=== PATIENT | female | born 1970 | race Caucasian/White ===

== ENCOUNTER → 2020-04-01 15:07 | Outpatient (CLI) | payer OTHER, SELFPAY ==
--- NOTE | ~2020-04-01 | MM_ITS ---
EXAMINATION: MM screening [facility] BI w apurva HISTORY: Screening mammogram TECHNIQUE: Craniocaudal and mediolateral oblique 3-D tomosynthesis images were obtained and synthetic 2-D images were generated. CAD analysis was submitted and interpreted. COMPARISON: 02/12/2019, 02/19/2018, 11/16/2016 bilateral digital screening mammogram examinations BREAST PARENCHYMAL COMPOSITION: The breasts are heterogeneously dense, which may obscure small masses . FINDINGS: There is no evidence of suspicious mass, calcification, or architectural distortion to sugg est malignancy in either breast. There has been no suspicious interval change. IMPRESSION: 1. No mammographic evidence of malignancy. 2. Recommend routine screening mammography in one year. BI-RADS Category 1: Negative Reviewed, dictated and finalized at location A.
== END ==
PROVIDERS: PCP Family Medicine; Visit Provider Obstetrics & Gynecology
DX: Z12.31 Encounter for screening mammogram for malignant neoplasm of breast (principal)
CPT/HCPCS: 77063; 77067

== ENCOUNTER → 2021-04-07 16:46 | Outpatient (CLI) | payer OTHER, SELFPAY ==
--- NOTE | ~2021-04-07 | MM_ITS ---
EXAMINATION: MM screening [facility] BI w apurva HISTORY: Screening TECHNIQUE: Craniocaudal and mediolateral oblique 3-D tomosynthesis images were obtained and synthetic 2-D images were generated. CAD analysis was submitted and interpreted. COMPARISON: Comparison to multiple prior studies sequentially, with oldest reviewed study dated 05/2015. BREAST PARENCHYMAL COMPOSITION: The breasts are heterogeneously dense, which may obscure small masses . FINDINGS: There is no evidence of suspicious mass, calcification, or architectural distortion to sugg est malignancy in either breast. There has been no suspicious interval change. IMPRESSION: 1. No mammographic evidence of malignancy. 2. Recommend routine screening mammography in one year. BI-RADS Category 1: Negative Reviewed, dictated and finalized at location A.
== END ==
PROVIDERS: Visit Provider Obstetrics & Gynecology
DX: Z12.31 Encounter for screening mammogram for malignant neoplasm of breast (principal)
CPT/HCPCS: 77063; 77067

== ENCOUNTER → 2021-08-15 08:55 | Outpatient (CLI) | payer OTHER, SELFPAY ==
--- NOTE | ~2021-08-15 | US_ITS ---
EXAMINATION: US abdomen complete EXAM DATE: 08/15/2021 09:19 INDICATION: K25.7 - Chronic gastric ulcer without hemorrhage or perfo... TECHNIQUE: Multiple grayscale and Doppler images of the complete abdomen were obtained (by a technolo gist who performed the scan) and subsequently reviewed. There is no prior study for comparison. FINDINGS: The abdominal aorta is normal in caliber. Visualized portion IVC is patent. The pancreatic head a nd body are normal in appearance. The pancreatic tail is not visualized. The liver has normal echogenicity and contour. There are no focal liver lesions identified. There is no evidence of intrahepatic biliary duct dilation. Portal venous flow was seen in the hepatopedal , normal direction and has normal Doppler waveform. Common bile duct measures 4 mm, which is normal. The gallbladder fossa is unremarkable. Right kidney: There is normal contour and echogenicity. It measures 9.7 x 4.5 x 5 centimeters. The re are no focal renal lesions identified. There is no hydronephrosis. Left kidney: There is normal contour and echogenicity. It measures 10.2 x 5.9 x 4.7 centimeters. T here are no focal renal lesions identified. There is no hydronephrosis. The spleen measures 10.2 centimeters and is morphologically normal. IMPRESSION: 1. Unremarkable complete abdominal ultrasound exam. Reviewed, dictated and finalized at location B. MEDICAL SURGICAL
== END ==
PROVIDERS: PCP Family Medicine; Visit Provider Nurse Practitioner Family
DX: K25.7 Chronic gastric ulcer without hemorrhage or perforation (principal); R10.31 Right lower quadrant pain
CPT/HCPCS: 76700

== ENCOUNTER 2021-09-09 10:09 | Outpatient (CLI) | payer OTHER, SELFPAY ==
--- NOTE | ~2021-09-09 | US_ITS ---
EXAMINATION: US soft tissue LE RT DATE: 09/09/2021 10:51 INDICATION: Right thigh lump. TECHNIQUE: Multiple grayscale and Doppler ultrasound images of the right thigh were obtained. COMPARISON: None FINDINGS: In the right thigh, there is a 1.5 x 0.7 x 1.2 cm ill-defined hyperechoic subcutaneous mass . In the right thigh, there is a 3.5 x 1.7 x 3.8 cm ill-defined isoechoic subcutaneous mass. Both mas ses demonstrate echotexture similar to normal subcutaneous fat. IMPRESSION: 1. Two right thigh subcutaneous masses measuring up to 3.8 cm, which may be inflammation or lipomas. Reviewed, dictated and finalized at location A. S PRESSER IMPRESSION: 1. Two right thigh subcutaneous masses measuring up to 3.8 cm, which may be inf lammation or lipomas.
--- NOTE | ~2021-09-09 | US_ITS ---
EXAMINATION: US soft tissue LE DATE: 09/09/2021 10:51 INDICATION: Left thigh lump. TECHNIQUE: Multiple grayscale and Doppler ultrasound images of the left thigh were obtained. COMPARISON: None FINDINGS: There is an ill-defined 1.8 x 1.7 x 0.9 cm hyperechoic subcutaneous mass in left thigh with echotexture similar to normal fat. IMPRESSION: 1. 1.8 cm subcutaneous mass in left thigh, which may be inflammation or a lipoma. Reviewed, dictated and finalized at location A. AND SEAT COVER FITTER IMPRESSION: 1. 1.8 cm subcutaneous mass in left thigh, which may be inflammation or a lipom a.
== END 2021-09-09 10:10 | disposition home or self-care (01) ==
LOC: ANHIMG 10:13
PROVIDERS: PCP Family Medicine; Visit Provider Nurse Practitioner Family
DX: R22.41 Localized swelling, mass and lump, right lower limb (principal); R22.42 Localized swelling, mass and lump, left lower limb
CPT/HCPCS: 76882

== ENCOUNTER 2022-05-02 07:29 | Outpatient (CLI) | payer OTHER, SELFPAY ==
--- NOTE | ~2022-05-02 | MM_ITS ---
EXAMINATION: MM screening [facility] BI w apurva HISTORY: Screening mammogram TECHNIQUE: Craniocaudal and mediolateral oblique 3-D tomosynthesis images were obtained and synthetic 2-D images were generated. CAD analysis was submitted and interpreted. COMPARISON: 821, 04/01/2020, 02/12/2019 BREAST PARENCHYMAL COMPOSITION: The breasts are heterogeneously dense, which may obscure small masses . FINDINGS: There is no suspicious mass, calcification, or architectural distortion to suggest malignan cy in either breast. There has been no suspicious interval change. IMPRESSION: 1. No mammographic evidence of malignancy. 2. Recommend routine screening mammography in one year. BI-RADS Category 1: Negative Reviewed, dictated and finalized at location A.
== END 2022-05-02 07:30 | disposition home or self-care (01) ==
PROVIDERS: PCP Family Medicine; Visit Provider Nurse Practitioner
DX: Z12.31 Encounter for screening mammogram for malignant neoplasm of breast (principal)
CPT/HCPCS: 77063; 77067

== ENCOUNTER → 2022-06-05 14:57 | Outpatient (CLI) | payer OTHER, SELFPAY ==
--- NOTE | ~2022-06-05 | DEXA_ITS ---
Bone Density Report Name: ALEXANDER WILSON Age: 52 Sex: Female Ethnicity: White Date of : 1970 Indication: osteopenia; height loss; hysterectomy; postmenopausal Referring Provider: THONG, GIDEON Study: Bone densitometry was performed. Exam Date: June 05, 2022 Accession number: [id number] Bone Density: Region BMD T-score Z-score Classification AP Spine (L1, L4) 0.898 -1.3 -0.3 Osteopenia Femoral Neck (Left) 0.771 -0.7 0.3 Normal Total Hip (Left) 0.904 -0.3 0.3 Normal Femoral Neck (Right) 0.805 -0.4 0.6 Normal Total Hip (Right) 0.872 -0.6 0.1 Normal Total Hip Mean 0.888 -0.5 0.2 Normal World Health Organization criteria for BMD impression classify patients as: Normal (T-score at or above -1.0), Osteopenia (T-score between -1.0 and -2.5), or Osteoporosis (T-score at or below -2.5). 10-year Fracture Risk(1): Major Osteoporotic Fracture 4.3% Hip Fracture 0.1% Reported Risk Factors: [place] (), Neck BMD=0.771, BMI=48.8 (1) FRAX(R) Version 3.08. Fracture probability calculated for an untreated patient. Fracture probability may be lower if the patient has received treatment. Previous Exams: Region Exam Age BMD T-score BMD Change BMD Change Date g/cm2 vs Baseline vs Previous AP Spine(L1, L4) 06/05/2022 52 0.898 -1.3 -0.011 -0.011 01/01/2019 48 0.909 -1.2 Total Hip(Left) 06/05/2022 52 0.904 -0.3 0.009 0.009 01/01/2019 48 0.895 -0.4 Total Hip(Right) 06/05/2022 52 0.872 -0.6 0.011 0.011 01/01/2019 48 0.861 -0.7 *Denotes significance at 95% confidence level, LSC for AP Spine = 0.022 g/cm2, LSC for Total Hip = 0.027 g/cm2 Clinical Information Provided by Patient: Has the following medical conditions: Hysterectomy Patient maximum height was 62 Menopause Age: 43 No regular weight bearing exercise Drinks caffeinated beverages Onset of menses at age 12 Number of children 3 Impression: The patient has low bone mass, based on the Total Spine T-score. The patient has an estimated ten-year risk of hip fracture of 0.1% and an estimated ten-year risk of major fracture of 4.3%, based on the WHO FRAX algorithm. No significant bone loss was observed. Discussion: BONE DENSITY IS LOW AT ONE OR MORE SKELETAL SITES. This patient's lowest T-score is low at one or more skeletal sites. It meets the World Health Organization's (WHO) criteria for ?low bone m
== END ==
PROVIDERS: PCP Nurse Practitioner; Visit Provider Nurse Practitioner
DX: M85.88 Other specified disorders of bone density and structure, other site (principal)
CPT/HCPCS: 77080

== ENCOUNTER 2022-09-08 09:10 | Outpatient (CLI) | payer OTHER, SELFPAY ==
--- NOTE | ~2022-09-08 | XR_ITS ---
Clinical Indication: Cough PA and lateral views of the chest: Comparison: 09/24/2017 Findings: The lungs are clear, without evidence of focal consolidation or pleural effusion. Cardiome diastinal silhouette is within normal limits. Large hiatal hernia again present. Mild S-shaped scolio sis is similar to prior exam. Impression: Large hiatal hernia, similar to prior exam. Clear lungs. Reviewed, dictated and finalized at location . WRAPPER Impression: Large hiatal hernia, similar to prior exam. Clear lungs.
--- NOTE | 2022-09-08 09:48 | ECG_ITS ---
Measurements Intervals [place] Rate: 73 P: 45 NC: 168 QRS: -20 QRSD: 80 T: 30 QT: 359 QTc: 398 Interpretive Statements SINUS RHYTHM RSR' IN V1 OR V2, PROBABLY NORMAL VARIANT LOW QRS VOLTAGE IN PRECORDIAL LEADS BORDERLINE ECG NO PREVIOUS ECG AVAILABLE FOR COMPARISON Electronically Signed On 09-08-2022 10:01:51 PBX TEACHER by Hay Cardoso D.O.
== END 2022-09-08 09:11 | disposition home or self-care (01) ==
PROVIDERS: PCP Family Medicine; Visit Provider Nurse Practitioner Family
DX: R07.9 Chest pain, unspecified (principal); R05.9 Cough, unspecified; K44.9 Diaphragmatic hernia without obstruction or gangrene; R94.31 Abnormal electrocardiogram [ECG] [EKG]
CPT/HCPCS: 71046; 93005

== ENCOUNTER 2022-09-15 14:34 | Outpatient (CLI) | payer OTHER, SELFPAY ==
--- NOTE | 2022-09-18 16:00 | WPDHOLTEREM ---
Holter/Event Monitor Holter/Event Monitor Date of procedure: 09/15/22 Holter/Event Procedure: 48 Hr Holter Monitor Indications: Chest pain Conclusion: 1. 48 hour holter monitor on 09/15/22. 2. Underlying rhythm is sinus rhythm. HR range 53-136 bpm; average HR 92 bpm. 3. There are 18 premature supraventricular complexes and 2 supraventricular couplets. No supraventricular tachycardia. 4. There is 1 premature ventricular complex. No ventricular tachycardia. 5. No sinoatrial or atrioventricular blocks. No significant pauses greater than 2 seconds. 6. No symptoms available for correlation.
== END 2022-09-15 14:35 | disposition home or self-care (01) ==
LOC: ANHCARD 14:37
PROVIDERS: PCP Family Medicine; Visit Provider Nurse Practitioner Family
DX: R07.9 Chest pain, unspecified (principal)
CPT/HCPCS: 93225; 93226

== ENCOUNTER → 2023-05-10 15:49 | Outpatient (CLI) | payer OTHER, SELFPAY ==
--- NOTE | ~2023-05-10 | MM_ITS ---
EXAMINATION: MM screening [facility] BI w apurva HISTORY: Screening mammogram TECHNIQUE: Craniocaudal and mediolateral oblique 3-D tomosynthesis images were obtained and synthetic 2-D images were generated. CAD analysis was submitted and interpreted. COMPARISON: 05/02/2022, 04/07/2021, 04/01/2020 bilateral screening mammogram examinations BREAST PARENCHYMAL COMPOSITION: The breasts are heterogeneously dense, which may obscure small masses . FINDINGS: There is no evidence of suspicious mass, calcification, or architectural distortion to sugg est malignancy in either breast. There has been no suspicious interval change. IMPRESSION: 1. No mammographic evidence of malignancy. 2. Recommend routine screening mammography in one year. BI-RADS Category 1: Negative Reviewed, dictated and finalized at location A.
== END ==
PROVIDERS: PCP Family Medicine; Visit Provider Family Medicine
DX: Z12.31 Encounter for screening mammogram for malignant neoplasm of breast (principal)
CPT/HCPCS: 77063; 77067

== ENCOUNTER → 2023-10-13 10:23 | Outpatient (CLI) | payer OTHER, SELFPAY ==
--- NOTE | ~2023-10-13 | XR_ITS ---
Clinical Indication: Chronic cough PA and lateral views of the chest: Comparison: 09/08/2022 Findings: The lungs are clear, without evidence of focal consolidation or pleural effusion. Cardiome diastinal silhouette is within normal limits. Large hiatal hernia is unchanged. Osseous structures ar e intact. Impression: Clear lungs. Stable large hiatal hernia. Reviewed, dictated and finalized at location . S WASHER Impression: Clear lungs. Stable large hiatal hernia.
== END ==
PROVIDERS: PCP Nurse Practitioner Adult Health; Visit Provider Nurse Practitioner Adult Health
DX: R05.3 Chronic cough (principal); R53.83 Other fatigue; K44.9 Diaphragmatic hernia without obstruction or gangrene
CPT/HCPCS: 71046

== ENCOUNTER 2023-10-25 14:57 | Outpatient (CLI) | payer OTHER, SELFPAY ==
--- NOTE | 2023-10-26 09:27 | WPDPFTINT ---
PFT Procedure Performed PFT Procedure Performed Plethysmography (Lung Vol) Diffusing Cap (DLCO) Flow Vol Loop Spirometry w/o Bronchodil PFT Interpretation Lung volumes were measured with the body plethysmography method. The diminished expiratory reserve volume is related to obesity. The remaining lung volumes are unremarkable. Spirometry showed diminished expiratory flow rates and a normal FEV1 to FVC ratio 76%. Lung diffusion capacity is within the normal range at 77% predicted. No post bronchodilator study was conducted. The flow-volume loop is unremarkable. Impression: Nonspecific pattern. Lung diffusion capacity within the normal range.
== END 2023-10-25 14:58 | disposition home or self-care (01) ==
PROVIDERS: PCP Family Medicine; Visit Provider Nurse Practitioner Adult Health
DX: R05.3 Chronic cough (principal)
CPT/HCPCS: 94375; 94726; 94729

== ENCOUNTER 2024-03-22 10:20 | Outpatient (CLI) | payer OTHER, SELFPAY ==
--- NOTE | ~2024-03-22 | XR_ITS ---
EXAMINATION: XR chest 2V 03/22/2024 10:55 INDICATION: Cough PROCEDURE: 2 view chest COMPARISON: Comparison to multiple prior studies sequentially, with oldest reviewed study dated 08/03. FINDINGS: The lungs are clear. The cardiomediastinal silhouette is within normal limits. There are no pleural effusions. There is no pneumothorax suspected. Large hiatal hernia. IMPRESSION: 1: NO ACUTE CARDIOPULMONARY DISEASE. 2: Large hiatal hernia. Reviewed, dictated and finalized at location B.
== END 2024-03-22 10:21 ==
LOC: MICIMG 10:21
PROVIDERS: PCP Family Medicine; Visit Provider Nurse Practitioner Adult Health
DX: R05.9 Cough, unspecified (principal); K44.9 Diaphragmatic hernia without obstruction or gangrene
CPT/HCPCS: 71046

== ENCOUNTER 2025-08-11 07:49 | Outpatient (CLI) | payer OTHER, SELFPAY ==
--- NOTE | 2025-09-01 10:11 | P.SLEEP_ITS ---
Sleep Study - Home Unattended Date of Study: 08/11/25 Ordering Provider: Aviva Ash Interpreting Provider: America Campbell DO Home Sleep Study Type: Watch PAT Height: 1.55 m Weight: 112.945 kg Body Mass Index: 47.0 Neck Circumference (inches): 16.5 [place]: 10 Reason for Sleep Study Daytime hypersomnia Sleep History The patient is a 55-year-old female that had a sleep study ordered by her ENT for evaluation of sleep apnea. The patient admits to snoring loudly and excessive daytime sleepiness. She does have interruptions in breathing while asleep. She denies choking or gasping at night. She denies having trouble breathing on her back. She denies morning headaches. She denies having a dry or sore mouth /throat in the morning. She denies nocturnal heartburn. She denies nocturia. She denies having difficulty falling and staying asleep. She does have difficulty returning to sleep if she wakes up throughout the night. She denies any hypnotic or sedative use. She denies feeling anxious about sleep. She does feel tired or sleepy during the day. She does feel tired in the morning. She does have the urge to fall asleep during the day. She does feel drowsy while driving. She denies sleep paralysis, cataplexy and hypnagogic/ hypnopompic hallucinations. She denies clenching or grinding her teeth. She denies he or jerking her legs excessively. She denies having a restless feeling in her legs. She goes to bed at 9:00 p.m. every night. It takes her 15 minutes to fall asleep on work days and 30 minutes on her days off. She gets 6 hours of sleep on work days and set on her days off. Her sleep is not restorative on her days off. She denies taking any planned naps. She denies dream enactment behavior. She denies sleep walking. She consumes 1-2 cups of caffeinated beverage per day. She denies tobacco and alcohol use. She denies exercising on a regular basis. ON LICENSE OF [facility] Past Medical History Medical History Weight gain Neuropathy Screening for colon cancer Anxiety due to invasive procedure Anxiety associated with cancer diagnosis Breast cancer Screening for thyroid disorder Low vitamin D level Anxiety Elevated LDL cholesterol level Elevated hemoglobin A1c Chronic cough Motion sickness Adult BMI 45.0-49.9 kg/sq m Surgical History Surgical History H/O: hysterectomy Family History Family History Grandparent Family history of coronary artery disease Father COPD (chronic obstructive pulmonary disease) Mother Sibling No problems noted. Social History Social History Smoking status: Never smoker Second hand tobacco smoke exposure: Yes Alcohol intake: current Substance use: never Substance use type: does not use Lack of Transportation: No Lack of Food: Never True Current Housing: I Have Housing Concerned About Future Housing: No Difficulty Paying Gas/Electric Bills: No Difficulty Paying for Meds: No Currently Unemployed: No Education: High School Diploma/GED Difficulty w/ Childcare or Family Care: No Living arrangements: with family Occupation/Education: occupation Additional occupation/education comments: Human Resources Gender identity (if verbalized by the patient): Female Sexual Orientation (if Verbalized by the Patient): Straight or Heterosexual Spiritual care concerns: No Agree to blood products: Yes Medications Home Medications ?Medication ?Instructions ?Recorded ?Confirmed ?Type scopolamine base 1 mg over 3 days 1 patch transdermal Q3D PRN motion 09/20/23 04/09/25 Rx transdermal patch sickness #4 ea cholecalciferol (vitamin D3) 125 125 mcg PO DAILY #30 caps 11/06/23 04/09/25 Rx mcg (5,000 unit) capsule clindamycin phosphate 1 % topical 1 applic topical DIONE LY #60 grams 02/12/24 04/09/25 Rx gel tretinoin 0.05 % topical cream 1 applic topical QHS #4 5 grams 02/12/24 04/09/25 Rx albuterol sulfate 90 mcg/actuation 2 inh inhalation Q4 H PRN shortness 07/02/24 04/09/25 Rx aerosol inhaler of breath or wheezing #8.5 g sharri codeine 10 mg-guaifenesin 100 mg/5 5 ml PO Q6H PRN cou gh #120 mL 07/14/24 04/09/25 Rx mL oral liquid (Virtussin AC) alprazolam 0.5 mg tablet (Xanax) 0.5 mg PO BID PRN anx iety #20 tabs 09/23/24 04/09/25 Rx nystatin 100,000 unit/gram topical 1 applic topical BI D #30 grams 12/31/24 04/09/25 Rx powder buspirone 15 mg tablet See Rx Instructions .Route 0 01/20/25 04/09/25 Rx .COMPLEX #90 tabs naltrexone 8 mg-bupropion 90 mg 2 tablet PO BID 0 days #120 tabs 02/16/25 04/09/25 Rx tablet,extended release (Contrave) terbinafine HCl 250 mg tablet 250 mg PO DAILY #90 tabs 06/10/25 Rx hydroxyzine HCl 25 mg tablet 25 mg PO TID PRN anxiety #90 tabs 07/11/25 Rx vilazodone 40 mg tablet (Viibryd) 40 mg PO DAILY #90 t abs 07/11/25 Rx Sleep Procedure The sleep study was completed using WanderflyT a technically adequate device with seven channels: peripheral arterial tone, actigraphy, body position, snore, respiratory movement, pulse oximetry, sleep staging, and heart rate. Prior to using the device, the patient received verbal and written instructions for its application and was provided with the help desk phone number for additional telephonic instruction with 24-hour availability of qualified personnel to answer questions. The study was scored using CMS guidelines. Sleep Architecture The total recording time is 8 hrs, 19 min. The total sleep time is 6 hrs, 32 min. Sleep latency is 30 minutes. REM latency is 42 minutes. The patient had 8 episodes of waking. Sleep architecture shows 19.9% deep sleep, 65.1% light sleep, and (as % Total Sleep Time) showed NREM (Light 65.1%; Deep 19.9%), and a 15.0% stage REM. The patient spent 40.9% of total sleep time in the supine position. Sleep efficiency was 78.56. Respiratory Analysis The overall AHI (pAHI 4%:) is 14.0. The overall AHI (pAHI 3%:) is 22.1. The central AHI is 0.0. The AHI was 23.7 in NREM and 13.3 in REM sleep. The AHI was 39.1 in Supine and 10.4 in Non-supine sleep. Percent of Antony Ac respirations is 0.0. Oximetry Data The oxygen desaturation index (ISABELLA 4%:) is 11.8. The mean saturation is 92%, and the lowest saturation is 84%. Time spent with saturation < 88% is 3.0 minutes. Snoring Profile Snoring average intensity is 46 dB. The patient snored above 45 decibels for 130.1 minutes, 33.2% of sleep time. Cardiac Profile The average pulse rate is 81 beats per minutes. The lowest pulse rate is 55 bpm. The highest pulse rate reported is 110 bpm. Atrial fibrillation was not detected. Premature beats occur <0.1 per minute. Assessment and Plan Assessment and Plan (1) URMILA (obstructive sleep apnea): Code(s): G47.33 - Obstructive sleep apnea (adult) (pediatric) Status: Acute Assessment and Plan: The patient had an overall AHI of 14.0 with desaturation down to 84%. This is consistent with mild sleep apnea. Due to the severity of the patient's daytime hypersomnia (ESS of 10/24), she qualifies for treatment. I recommend that the patient be prescribed AutoPAP 5-15 cm H2O, CPAP mask/filters/tubing and heated humidity. A mandibular advancement device is also an acceptable treatment option. This should be used with all episodes of sleep.? Compliance should be reviewed within 31-90 days of starting therapy for usage greater than 4 hours per night greater than 70% of the nights. The patient should be asked about symptoms such as?excessive daytime sleepiness, quality of sleep, decreased nocturia, increased?mental functioning such as memory, mood, and concentration. Data The data obtained during this sleep study is adequate for interpretation. Certification This sleep study has been reviewed by a board certified sleep medicine physician.
[2025-09-01 11:18] VITALS: BMI 47.0
== END 2025-08-12 11:30 | disposition home or self-care (01) ==
PROVIDERS: PCP Family Medicine
DX: G47.33 Obstructive sleep apnea (adult) (pediatric) (principal)
CPT/HCPCS: 95800